=== PATIENT | male | born 1960 | race Caucasian/White ===

== ENCOUNTER → 2016-12-07 | Outpatient (REF) | payer BC ==
[~2016-12-07] MED LIST: AUGM875T27 PO; AZEL0.1S3; CYTO25TA PO; GEMF600T PO; HYDR12.55 PO; LEVO150T7 PO; MILKSUS PO; RANI15TA PO; RANI1TAB6 PO; TERA10CA3 PO; TERA5CA PO
[2016-12-07 14:05] LABS: FREE T4 1.63 NG/DL (0.76-1.46)
== END ==
LOC: M LABDRWAD 12:15
PROVIDERS: ATTEND Internal Medicine Endocrinology, Diabetes & Metabolism
DX: E03.8 Other specified hypothyroidism (principal)

== ENCOUNTER → 2017-01-10 | Outpatient (CLI) | payer BC ==
--- NOTE | 2017-01-11 20:44 | SLEEPCENT ---
DATE OF PROCEDURE: 01/10/2017 REQUESTING PROVIDER: Dr. Quinones INTERPRETATION: Nocturnal polysomnography was performed for evaluation of sleep apnea syndrome symptoms in this patient with a history of excessive somnolence and nonrestorative sleep, comorbidities of hypertension and dependent edema. 6 hours and 38 minutes of data were reviewed. There were 304 minutes of sleep identified. Sleep latency was mildly prolonged at 18 minutes. Rapid eye movement (REM) latency was mildly prolonged at 93 minutes. Sleep architecture showed some poor progression early in the study, some fragmentation. Two REM periods were appreciated. Overall sleep efficiency was 77.8%. Electrocardiogram (EKG) showed a sinus rhythm with an average heart rate of 52 beats per minute. Electroencephalogram (EEG) showed reasonably normal waveforms for awake and sleep. There were 163 respiratory events identified of 10 seconds in duration or greater for an apnea-hypopnea index of 32.1. The events were predominantly obstructive but 13 central and 2 mixed apneas were also seen. Events were not exclusive to sleep stage nor body posture. Arousals from respiratory events occurred 8.1 times per hour and oxygen desaturations were seen into the 70s. There was also some limb activity appreciated. Limb movement arousal index was 7.5. IMPRESSION: 1. Severe obstructive sleep apnea syndrome (G47.33). Apnea-hypopnea index of 32.1. 2. Periodic limb movement disorder (G47.61). Limb movement arousal index of 7.5. RECOMMENDATIONS: The patient should be encouraged to return to the sleep disorder center for pressure therapy. In the interim, alcohol and sedative avoidance should be practiced and caution exercised during the operation of motor vehicles. Pending the outcome of pressure therapy, interventions to reduce the frequency of arousals from limb activity may also be helpful.
== END ==
LOC: M SLEEP 19:21
PROVIDERS: ATTEND Internal Medicine Pulmonary Disease
DX: R40.0 Somnolence (principal)

== ENCOUNTER → 2017-02-23 | Outpatient (REF) | payer BC ==
[2017-02-23 12:54] LABS: FREE T4 1.37 NG/DL (0.76-1.46)
== END ==
LOC: M LABDRWAD 12:11
PROVIDERS: ATTEND Internal Medicine Endocrinology, Diabetes & Metabolism
DX: E03.8 Other specified hypothyroidism (principal)

== ENCOUNTER → 2017-04-04 | Outpatient (CLI) | payer BC ==
--- NOTE | 2017-04-07 15:18 | SLEEPCENT ---
DATE OF PROCEDURE: 04/04/2017 REFERRING PHYSICIAN: Dr. Patricio Quinones. INTERPRETATION: Nocturnal polysomnography was performed for the titration of pressure therapy in this patient with severe obstructive sleep apnea syndrome, apnea/hypopnea index up to 32. For testing, a ResMed Mirage FX nasal mask of standard size was used, 5 cm of water pressure were applied to the circuit, and the lights were extinguished. 6 hours and 16 minutes of data were reviewed. There were 326 minutes of sleep identified. Sleep latency was short at 6.5 minutes. REM latency was normal at 79 minutes. Sleep architecture improved with optimal pressure therapy. There were two REM periods appreciated. Overall sleep efficiency was 87.9%. EKG showed a sinus rhythm with an average heart rate of 55 beats per minute. EEG showed reasonably normal waveforms for awake and sleep. Respiratory events were best palliated with CPAP to a pressure of +8. Some limb activity persisted, though limb movement arousal index was increased from his diagnostic study at 9.6. IMPRESSION: Obstructive sleep apnea syndrome (G47.33). Periodic limb movement disorder (G47.61). RECOMMENDATION: Night use of pressure therapy at 8 cm of water should be sufficient to address the patient's respiratory issues. Interventions to reduce the frequency of arousal from limb activity may further improve the quality of sleep.
== END ==
LOC: M SLEEP 19:46
PROVIDERS: ATTEND Internal Medicine Pulmonary Disease
DX: G47.33 Obstructive sleep apnea (adult) (pediatric) (principal)

== ENCOUNTER → 2017-04-13 | Outpatient (REF) | payer BC ==
[2017-04-13 20:17] LABS: FREE T4 1.29 NG/DL (0.76-1.46)
== END ==
LOC: M LABDRWAD 09:38
PROVIDERS: ATTEND Internal Medicine Endocrinology, Diabetes & Metabolism
DX: E03.8 Other specified hypothyroidism (principal)

== ENCOUNTER → 2017-05-31 | Outpatient (REF) | payer BC ==
[~2017-05-31] MED LIST changes: -AUGM875T27 PO; +AUGM875T28 PO; -CYTO25TA PO; +CYTO25TA6 PO
[2017-05-31 15:04] LABS: FREE T4 1.2 NG/DL (0.76-1.46)
== END ==
LOC: M LABDRWAD 12:02
PROVIDERS: ATTEND Internal Medicine Endocrinology, Diabetes & Metabolism
DX: E03.8 Other specified hypothyroidism (principal)

== ENCOUNTER → 2017-05-31 | Outpatient (CLI) | payer BC ==
--- NOTE | 2017-05-31 23:03 | ECGEPIP ---
Stationary ECG Study [facility] Test Date: 2017-05-31 Pat Name: CHRISTIAN NAGY Department: Room: - Gender: M Entry Examiner: [facility] : 1960 Requested By: Kurt Chawla @ [facility] Order Number: [id number] Reading MD: Brad Cohen Measurements Intervals [place] Rate: 53 P: 27 [place]: 152 QRS: 2 QRSD: 129 T: -4 QT: 405 QTc: 382 Interpretive Statements SINUS BRADYCARDIA POSSIBLE RIGHT VENTRICULAR CONDUCTION DELAY INFERIOR MYOCARDIAL INFARCTION, PROBABLY OLD COMPARED TO THE LAST 2 TRACINGS IN THE SYSTEM, NO SIGNIFICANT CHANGES Electronically Signed On 05-31-2017 23:03:42 EDT by Brad Cohen
== END ==
LOC: M EKG 12:50
PROVIDERS: ATTEND Orthopaedic Surgery
DX: I10 Essential (primary) hypertension (principal)

== ENCOUNTER → 2017-05-31 | Outpatient (REF) | payer BC ==
[2017-05-31 13:09] LABS: ANION GAP 8 MEQ/L (8-16); BLOOD UREA NITROGEN 26 MG/DL (7-18); CALCIUM LEVEL 9.5 MG/DL (8.5-10.1); CARBON DIOXIDE LEVEL 26 MEQ/L (21-32); CHLORIDE LEVEL 105 MEQ/L (98-107); CREATININE FOR GFR 1.08 MG/DL (0.70-1.30); GLOMERULAR FILTRATION RATE > 60.0 (>56); GLUCOSE, FASTING 115 MG/DL (70-105); POTASSIUM SERUM 4.3 MEQ/L (3.5-5.1); SODIUM LEVEL 139 MEQ/L (136-145)
== END ==
LOC: M LABDRWAD 12:01
PROVIDERS: ATTEND Orthopaedic Surgery
DX: Z79.899 Other long term (current) drug therapy (principal); I10 Essential (primary) hypertension

== ENCOUNTER → 2017-09-13 | Outpatient (REF) | payer BC ==
[2017-09-13 13:24] LABS: FREE T4 1.19 NG/DL (0.76-1.46)
== END ==
LOC: M LABDRWAD 12:22
PROVIDERS: ATTEND Internal Medicine Endocrinology, Diabetes & Metabolism
DX: E03.8 Other specified hypothyroidism (principal)

== ENCOUNTER → 2018-03-07 | Outpatient (REF) | payer BC ==
[2018-03-07 13:28] LABS: FREE T4 1.13 NG/DL (0.76-1.46); THYROID STIMULATING HORMONE 0.245 uIU/ML (0.358-3.740)
== END ==
LOC: M LAB REF 12:35
DX: E03.8 Other specified hypothyroidism (principal)
CPT/HCPCS: 84443

== ENCOUNTER → 2018-09-12 | Outpatient (CLI) | payer BC | LOC: M LABDRWAD 11:17 | DX: E03.9 Hypothyroidism, unspecified (principal) | CPT/HCPCS: 84443 ==

== ENCOUNTER → 2018-11-14 | Outpatient (REF) | payer BC ==
[~2018-11-14] MED LIST changes: -GEMF600T PO; +GEMF600T5 PO; +MILK120011 PO; -MILKSUS PO; -TERA5CA PO; +TERA5CAP3 PO
== END ==
LOC: M LABDRWAD 19:02
PROVIDERS: ATTEND Internal Medicine
DX: E03.9 Hypothyroidism, unspecified (principal)

== ENCOUNTER 2019-06-13 10:09 | Day surgery (SDC) | payer BC ==
[~2019-06-13] VITALS: Ht 177.8 cm; Wt 117.0 kg
[~2019-06-13 10:09] MED LIST changes: +ATOR1TAB21 PO; +LOSA100T50 PO; +OMEG1CAP16 PO
[2019-06-13] MEDS: NS 1,000 ML IV ONE (11:45)
[2019-06-13] MEDS ORDERED: PROPOFOL 200 MG/20 ML VIAL As Ordered ONE (11:47)
[2019-06-13] MEDS ORDERED: LIDOCAINE 2% INJ 100 MG/5 ML SDV (FOR ANES.) As Ordered ONE (11:47)
--- NOTE | 2019-06-13 12:26 | ROOR ---
Patient Name: Juan Daniel Reece Procedure Date: 06/13/2019 12:05 PM Date of : 1960 Age: 58 Room: [facility] Gender: Male Note Status: Finalized Procedure: Colonoscopy Indications: High risk colon cancer surveillance: Personal history of colonic polyps Providers: Enrike Ricks Jr, MD Referring MD: MORIS RJOAS MD Requesting Provider: Medicines: Propofol per Anesthesia Complications: No immediate complications. Procedure: Pre-Anesthesia Assessment: - Prior to the procedure, a History and Physical was performed, and patient medications and allergies were reviewed. The patient is competent. The risks and benefits of the procedure and the sedation options and risks were discussed with the patient. All questions were answered and informed consent was obtained. Patient identification and proposed procedure were verified by the physician and the nurse in the pre-procedure area and in the procedure room. Mental Status Examination: alert and oriented. Airway Examination: normal oropharyngeal airway and neck mobility. Respiratory Examination: clear to auscultation. CV Examination: normal. ASA Grade Assessment: II - A patient with mild systemic disease. After reviewing the risks and benefits, the patient was deemed in satisfactory condition to undergo the procedure. The anesthesia plan was to use moderate sedation / analgesia (conscious sedation). Immediately prior to administration of medications, the patient was re-assessed for adequacy to receive sedatives. The heart rate, respiratory rate, oxygen saturations, blood pressure, adequacy of pulmonary ventilation, and response to care were monitored throughout the procedure. The physical status of the patient was re-assessed after the procedure. The Colonoscope was introduced through the anus and advanced to the cecum, identified by appendiceal orifice and ileocecal valve. The colonoscopy was performed without difficulty. The patient tolerated the procedure well. The quality of the bowel preparation was fair. Findings: The rectum, recto-sigmoid colon, sigmoid colon, descending colon, cecum, appendiceal orifice and ileocecal valve appeared normal. Three polyps were found in the transverse colon and ascending colon. The polyps were small in size. These polyps were removed with a cold snare. Resection and retrieval were complete. Impression: - Preparation of the colon was fair. - The rectum, recto-sigmoid colon, sigmoid colon, descending colon, cecum, appendiceal orifice and ileocecal valve are normal. - Three small polyps in the transverse colon and in the ascending colon, removed with a cold snare. Resected and retrieved. Recommendation: - Repeat colonoscopy for screening purposes. - Repeat colonoscopy in 5 years for surveillance. Enrike Ricks MD Enrike Ricks Jr, MD 06/13/2019 12:26:03 PM Electronically signed by Enrike Ricks Jr, MD Number of Addenda: 0 Note Initiated On: 06/13/2019 12:05 PM Estimated Blood Loss: Estimated blood loss: none.
[2019-06-13 12:48] VITALS: BP 169/82
== END 2019-06-13 12:57 | disposition home or self-care (01) ==
LOC: M OPP 10:09
PROVIDERS: ATTEND Surgery
DX: Z12.11 Encounter for screening for malignant neoplasm of colon (principal); Z86.010 Personal history of colon polyps; D12.3 Benign neoplasm of transverse colon; D12.2 Benign neoplasm of ascending colon; G47.30 Sleep apnea, unspecified; E03.9 Hypothyroidism, unspecified; K21.9 Gastro-esophageal reflux disease without esophagitis; Z79.899 Other long term (current) drug therapy; Z88.8 Allergy status to other drugs, medicaments and biological substances

== ENCOUNTER → 2020-04-15 | Outpatient (REF) | payer BC ==
[~2020-04-15] MED LIST changes: +RANI-397 PO; -RANI1TAB6 PO
== END ==
LOC: M LABDRWAD 16:45
PROVIDERS: ATTEND Internal Medicine
DX: E03.9 Hypothyroidism, unspecified (principal)

== ENCOUNTER → 2020-11-03 | Outpatient (CLI) | payer SELFPAY | LOC: M LABSMTC 11:09 | PROVIDERS: ATTEND Pediatrics | DX: Z20.828 Contact with and (suspected) exposure to other viral communicable diseases (principal) ==

== ENCOUNTER → 2021-09-03 | Outpatient (REF) | payer BC ==
[2021-09-03 17:55] LABS: HEMOGLOBIN A1c 5.8 %
[2021-09-03 18:09] LABS: ALBUMIN 4.4 GM/DL (3.2-5.2); ALT/SGPT 38 U/L (12-78); BILIRUBIN,TOTAL 0.5 MG/DL (0.2-1.0); BLOOD UREA NITROGEN 21 MG/DL (7-18); CARBON DIOXIDE LEVEL 29 MEQ/L (21-32); CHLORIDE LEVEL 105 MEQ/L (98-107); CHOLESTEROL LEVEL 189 MG/DL (<200); CHOLESTEROL RISK RATIO 2.304 (<5); CREATININE FOR GFR 1.13 MG/DL (0.70-1.30); GLOMERULAR FILTRATION RATE > 60.0 (>56); GLUCOSE, FASTING 91 MG/DL (70-100); HDL CHOLESTEROL 82 MG/DL (>40); LDL CHOLESTEROL 81 MG/DL (<100); NON-HDL-C 107 MG/DL; POTASSIUM SERUM 4.7 MEQ/L (3.5-5.1); SODIUM LEVEL 141 MEQ/L (136-145); TOTAL PROTEIN 7.6 GM/DL (6.4-8.2); TRIGLYCERIDES LEVEL 130 MG/DL (<150)
== END ==
LOC: M LABDRWAD 16:35
PROVIDERS: ATTEND Internal Medicine
DX: E78.2 Mixed hyperlipidemia (principal); R73.01 Impaired fasting glucose; E03.9 Hypothyroidism, unspecified

== ENCOUNTER → 2023-05-03 | Outpatient (CLI) | payer BC ==
[~2023-05-03] MED LIST changes: +LOSA100T46 PO; -LOSA100T50 PO
== END ==
LOC: M RAD 15:50
PROVIDERS: ATTEND Physician Assistant
DX: R60.9 Edema, unspecified (principal)

== ENCOUNTER → 2023-06-10 | Outpatient (CLI) | payer BC | LOC: M RAD 14:44 | PROVIDERS: ATTEND Internal Medicine | DX: M79.604 Pain in right leg (principal); M25.561 Pain in right knee; M25.571 Pain in right ankle and joints of right foot ==

== ENCOUNTER → 2023-08-28 | Outpatient (CLI) | payer BC | LOC: M RAD 14:30 | PROVIDERS: ATTEND Internal Medicine | DX: Z12.2 Encounter for screening for malignant neoplasm of respiratory organs (principal); F17.201 Nicotine dependence, unspecified, in remission ==

== ENCOUNTER 2024-03-14 06:45 | Day surgery (SDC) | payer BC ==
[~2024-03-14] VITALS: Ht 175.3 cm; Wt 136.7 kg
[~2024-03-14 06:45] MED LIST changes: +ALLO100T PO; +ASPI-255 PO; +AZIT-12 PO; +CARB25TA18 PO; +ELIQ5TAB PO; +FOLI1TAB11 PO; +FURO40TA2 PO; +LEVO2TA PO; +LOPI600T PO; +LOSA50TA28 PO; +METO25TA4 PO; +OMEG10002 PO; +PRIL20TA2 PO; +PROA1AER2 INH; +ROSU20TA61 PO; +THERTAB52 PO; +VITA-243 PO
[2024-03-14] MEDS: NS 1,000 ML IV ONE (07:31)
[2024-03-14] MEDS ORDERED: LIDOCAINE 2% 100MG/5ML SDV (FOR ANES.) As Ordered ONE (08:05)
[2024-03-14] MEDS ORDERED: propofoL 200 MG/20 ML VIAL As Ordered ONE (08:05)
[2024-03-14 08:46] VITALS: TEMP 97.6
[2024-03-14 09:02] VITALS: BP 115/55; O2SAT 95
== END 2024-03-14 09:07 | disposition home or self-care (01) ==
LOC: M OPP 06:45
PROVIDERS: ATTEND Surgery
DX: Z12.11 Encounter for screening for malignant neoplasm of colon (principal); Z86.010 Personal history of colon polyps; D12.0 Benign neoplasm of cecum; K57.30 Diverticulosis of large intestine without perforation or abscess without bleeding; I48.91 Unspecified atrial fibrillation; I25.10 Atherosclerotic heart disease of native coronary artery without angina pectoris; G47.30 Sleep apnea, unspecified; Z79.01 Long term (current) use of anticoagulants; Z79.02 Long term (current) use of antithrombotics/antiplatelets; Z79.2 Long term (current) use of antibiotics; Z79.51 Long term (current) use of inhaled steroids; Z79.82 Long term (current) use of aspirin; Z79.899 Other long term (current) drug therapy

== ENCOUNTER → 2024-04-22 | Outpatient (CLI) | payer BC | LOC: M RAD 14:18 | PROVIDERS: ATTEND Surgery Vascular Surgery | DX: I65.23 Occlusion and stenosis of bilateral carotid arteries (principal) ==

== ENCOUNTER → 2024-11-11 | Outpatient (CLI) | payer BC ==
[~2024-11-11] MED LIST changes: -ROSU20TA61 PO; +ROSU20TA86 PO
== END ==
LOC: M RAD 10:30
PROVIDERS: ATTEND Internal Medicine
DX: F17.211 Nicotine dependence, cigarettes, in remission (principal); I25.10 Atherosclerotic heart disease of native coronary artery without angina pectoris

== ENCOUNTER → 2025-04-23 | Outpatient (CLI) | payer BC | LOC: M RAD 12:48 | PROVIDERS: ATTEND Physician Assistant | DX: I65.23 Occlusion and stenosis of bilateral carotid arteries (principal); I77.1 Stricture of artery ==

== ENCOUNTER → 2025-05-23 | Outpatient (CLI) | payer BC | LOC: M WUC 15:43 | PROVIDERS: ATTEND Nurse Practitioner Family | DX: M25.561 Pain in right knee (principal); M17.11 Unilateral primary osteoarthritis, right knee; M25.461 Effusion, right knee ==